=== PATIENT | male | born 1990 | race Caucasian/White ===

== ENCOUNTER 2024-11-04 20:10 | Emergency (ER) | payer MEDICAID ==
[2024-11-04 20:45] LABS: BASOPHILS ABSOLUTE AUTO 0.1 K/mm3 (0.0-0.2); BASOPHILS PERCENT AUTO 0.5 % (0.0-1.0); EOSINOPHILS ABSOLUTE AUTO 0.1 K/mm3 (0.0-0.4); EOSINOPHILS PERCENT AUTO 0.9 % (0.0-6.0); HEMOGLOBIN 13.6 gm/dl (14.0-18.0); IMMATURE GRAN ABSOLUTE AUTO 0.04 K/mm3 (0.00-0.05); IMMATURE GRAN PERCENT AUTO 0.3 % (0.0-0.4); LYMPHOCYTES ABSOLUTE AUTO 5.5 K/mm3 (1.0-4.8); LYMPHOCYTES PERCENT AUTO 42.2 % (24.0-44.0); MEAN CORPUSCULAR HEMOGLOBIN 31.6 pg (28.0-32.0); MEAN CORPUSCULAR HGB CONC 34.9 g/dl (32.0-36.0); MEAN CORPUSCULAR VOLUME 90.5 fl (83.0-99.0); MEAN PLATELET VOLUME 9.5 fl (9.4-12.4); MONOCYTES ABSOLUTE AUTO 0.7 K/mm3 (0.0-0.8); MONOCYTES PERCENT AUTO 5.5 % (0.0-8.0); NEUTROPHILS ABSOLUTE AUTO 6.5 K/mm3 (1.8-7.7); NEUTROPHILS PERCENT AUTO 50.6 % (41.0-71.0); PLATELET COUNT,PLT 437 K/mm3 (150-400); RED BLOOD CELL COUNT 4.31 M/mm3 (4.52-5.90); WHITE BLOOD CELL COUNT,WBC 12.91 K/mm3 (3.9-11.3)
[2024-11-04 21:14] LABS: A/G RATIO 1.2 (1-2); ALBUMIN 3.6 g/dl (3.4-5.0); ANION GAP 14.3 (5-15); BILIRUBIN TOTAL 0.4 mg/dL (0.2-1.0); BUN/CREATININE RATIO 13.6 (14-18); CALCIUM 8.8 mg/dL (8.5-10.1); CREATININE 1.1 mg/dL (0.7-1.3); EST CRCL DRUG DOSING (CG) 82.31 mL/min; MAGNESIUM 1.8 mg/dL (1.8-2.4); POTASSIUM,K 3.3 mEq/L (3.5-5.1); PROTEIN TOTAL,TP 6.7 g/dl (6.4-8.2)
[2024-11-04 21:28] LABS: SLIDE REVIEW ABNORMAL SMEAR
[2024-11-04] MEDS: Ketorolac 30 MG/ML SDV IVPUSH ONE (21:54)
[2024-11-04] MEDS: Famotidine 20 MG/2 ML SDV IVPUSH ONE (21:56)
== END 2024-11-04 22:39 | disposition home or self-care (01) ==
LOC: JD.ED 20:10
DX: R07.89 Other chest pain (principal); R07.81 Pleurodynia; F17.200 Nicotine dependence, unspecified, uncomplicated
CPT/HCPCS: 36415; 71045; 80053; 83735; 84484; 85025; 96374; 96375; 99285; J1885; 93005

== ENCOUNTER 2025-02-06 15:13 | Emergency (ER) | payer MEDICAID ==
[2025-02-06] MEDS: cefTRIAXone 500 MG, Lidocaine 1% 1 ML IM SCH (15:54)
[2025-02-06 16:15] LABS: APPEARANCE,URINE CLOUDY (Clear); GLUCOSE,URINE NEGATIVE (Negative); OCCULT BLOOD,URINE TRACE-INTACT (Negative)
[2025-02-06 16:26] LABS: EPITHELIAL CELLS,URINE 0-5 /hpf (0-5)
[2025-02-06 20:15] LABS: C. TRACHOMATIS BY PCR NOT DETECTED; N. GONORRHOEAE BY PCR DETECTED
== END 2025-02-06 16:26 | disposition home or self-care (01) ==
LOC: JD.ED 15:13
DX: A64 Unspecified sexually transmitted disease (principal)
CPT/HCPCS: 81001; 87086; 87491; 87591; 96372; 99283; J0696; J2003; Q0144; A9270-GY

== ENCOUNTER 2025-04-08 16:16 | Emergency (ER) | payer MEDICAID | END 2025-04-08 17:40 | disposition home or self-care (01) | LOC: JD.ED 16:16 | DX: K40.90 Unilateral inguinal hernia, without obstruction or gangrene, not specified as recurrent (principal); F17.200 Nicotine dependence, unspecified, uncomplicated | CPT/HCPCS: 99283 ==

== ENCOUNTER 2025-04-16 21:02 | Emergency (ER) | payer MEDICAID | END 2025-04-16 22:23 | disposition home or self-care (01) | LOC: JD.ED 21:02 | DX: K40.90 Unilateral inguinal hernia, without obstruction or gangrene, not specified as recurrent (principal) | CPT/HCPCS: 99283 ==

== ENCOUNTER 2025-04-30 11:26 | Day surgery (SDC) | payer MEDICAID ==
[~2025-04-30 11:26] MED LIST: Lactated Ringers 1,000 ML IV SCH; Sodium Chloride 0.9% 10 ML Syringe FLUSH PRN; Sodium Chloride 0.9% 10 ML Syringe FLUSH SCH
[2025-04-30] MEDS ORDERED: propofoL 1,000 MG/100 ML 100 ML ONE (11:34)
[2025-04-30 12:11] LABS: BUPRENORPHINE SCREEN,URINE NEGATIVE (CUTOFF=10); METHADONE SCREEN, URINE NEGATIVE (CUT0FF=200); METHAMPHETAMINES SCREEN, URINE PRESUMPTIVE POSITIVE (CUTOFF=500); OXYCODONE SCREEN,URINE NEGATIVE (CUT0FF=100); THC SCREEN,URINE 20 NG/ML PRESUMPTIVE POSITIVE (CUTOFF=50)
[2025-04-30 12:12] LABS: AMPHETAMINES SCREEN, URINE PRESUMPTIVE POSITIVE (CUTOFF=500)
[2025-04-30] MEDS: EPINEPHrine 1 MG/ML SDV ONE (13:45)
== END 2025-04-30 14:10 | disposition home or self-care (01) ==
LOC: JD.SDS 11:26
PROVIDERS: ATTEND Surgery
DX: K40.90 Unilateral inguinal hernia, without obstruction or gangrene, not specified as recurrent (principal); F17.210 Nicotine dependence, cigarettes, uncomplicated; Z53.8 Procedure and treatment not carried out for other reasons
CPT/HCPCS: 80306; J0169; J0665; J2704